=== PATIENT | female | born 1975 | race Caucasian/White ===

== ENCOUNTER 2019-03-12 12:56 | Emergency (ER) | payer OTHER ==
[~2019-03-12] VITALS: Ht 165.1 cm; Wt 49.9 kg
[2019-03-12 13:08] VITALS: Ht 165.1 cm; Wt 49.9 kg
[2019-03-12 13:27] LABS: BASOPHIL % 0.5 % (0-2); PLATELET COUNT 234 x10^3mcL (130-400); RED CELL DISTRIBUTION WIDTH 12.7 % (11.5-14.5)
[2019-03-12 13:36] LABS: CARBON DIOXIDE 34.4 mmol/L (21-32); CREATININE SERUM 1.3 mg/dL (0.6-1.0); POTASSIUM SERUM 3.5 mmol/L (3.5-5.1)
[2019-03-12 13:42] LABS: ALBUMIN 4.1 g/dL (3.4-5.0); BILIRUBIN TOTAL 1.25 mg/dL (0.20-1.00); TOTAL PROTEIN, SERUM 7.8 g/dL (6.4-8.2)
[2019-03-12 17:30] VITALS: BP 151/97
[2019-03-14 09:08] LABS: calcium (part of PTHIC) 11.8 mg/dL (8.7-10.2)
[2019-03-16 10:05] LABS: CALCIUM IONIZED 6.8 mg/dL (4.5-5.6)
== END 2019-03-12 17:30 | disposition home or self-care (01) ==
LOC: ED 12:56
PROVIDERS: Emergency Medicine
DX: E86.0 Dehydration (principal); K52.9 Noninfective gastroenteritis and colitis, unspecified; Z88.2 Allergy status to sulfonamides
CPT/HCPCS: J7030

== ENCOUNTER 2019-03-16 15:29 | Emergency (ER) | payer OTHER ==
[~2019-03-16] VITALS: Ht 157.5 cm; Wt 59.0 kg
[2019-03-16 15:42] VITALS: Ht 157.5 cm; Wt 59.0 kg
[2019-03-16 16:50] LABS: BASOPHIL % 0.6 % (0-2); PLATELET COUNT 187 x10^3mcL (130-400); RED CELL DISTRIBUTION WIDTH 12.8 % (11.5-14.5)
[2019-03-16 16:58] LABS: CALCIUM 12.2 mg/dL (8.5-10.1); CARBON DIOXIDE 31.6 mmol/L (21-32); CREATININE SERUM 1.2 mg/dL (0.6-1.0); POTASSIUM SERUM 3.7 mmol/L (3.5-5.1)
[2019-03-16 17:02] LABS: ALBUMIN 3.8 g/dL (3.4-5.0); BILIRUBIN TOTAL 0.86 mg/dL (0.20-1.00); TOTAL PROTEIN, SERUM 7.2 g/dL (6.4-8.2)
[2019-03-16 17:15] LABS: microscopic required? NO
[2019-03-16 17:28] LABS: urine erythrocyte NEGATIVE (NEGATIVE)
[2019-03-17 00:53] VITALS: BP 149/64
== END 2019-03-17 00:53 | disposition short-term general hospital (02) ==
LOC: ED 15:29
PROVIDERS: Emergency Medicine
DX: E83.52 Hypercalcemia (principal); G35 Multiple sclerosis; R53.1 Weakness; Z88.2 Allergy status to sulfonamides
CPT/HCPCS: J1940; J2930; J7030; Q0092

== ENCOUNTER 2020-01-04 11:51 | Emergency (ER) | payer OTHER ==
[~2020-01-04] VITALS: Ht 165.1 cm; Wt 52.2 kg
[2020-01-04 12:15] VITALS: Ht 165.1 cm; Wt 52.2 kg
[2020-01-04 14:36] LABS: BASOPHIL % 1.3 % (0-2); PLATELET COUNT 163 x10^3mcL (130-400); RED CELL DISTRIBUTION WIDTH 13.1 % (11.5-14.5)
[2020-01-04 15:07] LABS: microscopic required? YES; urine erythrocyte NEGATIVE (NEGATIVE)
[2020-01-04 15:11] LABS: CALCIUM 9.3 mg/dL (8.5-10.1); CARBON DIOXIDE 27.4 mmol/L (21-32); CHLORIDE SERUM 102 mmol/L (98-107); CREATININE SERUM 1.1 mg/dL (0.6-1.0); GFR1 57 mL/min; GLUCOSE SERUM 89 mg/dL (74-106); POTASSIUM SERUM 4.1 mmol/L (3.5-5.1); SODIUM SERUM 138 mmol/L (136-145)
[2020-01-04 15:19] LABS: AMPHETAMINE QUAL UR NONE DETECTED (See below)
[2020-01-04 15:22] LABS: ALBUMIN 4.2 g/dL (3.4-5.0); ALKALINE PHOSPHATASE 69 U/L (46-116); ALT/SGPT 27 U/L (14-59); AST/SGOT 20 U/L (15-37); BILIRUBIN TOTAL 1.3 mg/dL (0.20-1.00); CHOLESTEROL 157 mg/dL (<200); LIPASE 219 IU/L (73-393); MAGNESIUM 2.1 mg/dL (1.8-2.4); T4(THYROXINE) 10.2 ug/dL (4.7-13.3); TOTAL PROTEIN, SERUM 7.5 g/dL (6.4-8.2)
[2020-01-04 15:24] LABS: HDL CHOLESTEROL 74 mg/dL (40-60)
[2020-01-04 17:03] VITALS: BP 113/74
== END 2020-01-04 17:03 | disposition home or self-care (01) ==
LOC: ED 11:51
PROVIDERS: Emergency Medicine
DX: N18.3 Chronic kidney disease, stage 3 (moderate) (principal); R53.1 Weakness; Z88.2 Allergy status to sulfonamides; Z98.890 Other specified postprocedural states
CPT/HCPCS: 82962; G0480; Q0092

== ENCOUNTER 2020-02-01 12:55 | Emergency (ER) | payer OTHER ==
[~2020-02-01] VITALS: Ht 165.1 cm; Wt 52.6 kg
[2020-02-01 13:06] VITALS: Ht 165.1 cm; Wt 52.6 kg
[2020-02-01 14:28] LABS: BASOPHIL % 0.8 % (0-2); PLATELET COUNT 176 x10^3mcL (130-400); RED CELL DISTRIBUTION WIDTH 12.9 % (11.5-14.5)
[2020-02-01 14:34] LABS: CALCIUM 9.6 mg/dL (8.5-10.1); CHLORIDE SERUM 100 mmol/L (98-107); CREATININE SERUM 0.9 mg/dL (0.6-1.0); GFR1 > 60 mL/min; GLUCOSE SERUM 81 mg/dL (74-106); POTASSIUM SERUM 3.9 mmol/L (3.5-5.1); SODIUM SERUM 136 mmol/L (136-145)
[2020-02-01 14:40] LABS: ALBUMIN 4.4 g/dL (3.4-5.0); ALKALINE PHOSPHATASE 69 U/L (46-116); ALT/SGPT 27 U/L (14-59); AST/SGOT 19 U/L (15-37); BILIRUBIN TOTAL 1.7 mg/dL (0.20-1.00); LIPASE 185 IU/L (73-393); TOTAL PROTEIN, SERUM 7.9 g/dL (6.4-8.2)
[2020-02-01 14:59] LABS: microscopic required? NO
[2020-02-01 15:09] LABS: UA SPECIFIC GRAVITY <=1.005 (1.005-1.035); urine erythrocyte NEGATIVE (NEGATIVE)
[2020-02-01 16:39] VITALS: BP 116/72
== END 2020-02-01 16:39 | disposition home or self-care (01) ==
LOC: ED 12:55
PROVIDERS: Emergency Medicine
DX: R10.9 Unspecified abdominal pain (principal); M54.9 Dorsalgia, unspecified; Z86.39 Personal history of other endocrine, nutritional and metabolic disease
CPT/HCPCS: J1885